=== PATIENT | female | born 1990 | race Caucasian/White ===

== ENCOUNTER 2016-07-13 18:20 | Emergency (ER) | payer OTHER ==
[~2016-07-13 18:20] MED LIST: CELEBREX200 MG PO; METHADONE HCL10 MG PO; VICODIN EQUIVAL1 TAB PO
--- NOTE | 2016-07-13 21:32 | ED CLINICAL REPORT ---
Clinical Report - Physicians/Mid Levels [facility] [address] [place] [address] 07/13/2016 18:20 Patient: SHELDON JARA Time Seen: 21:10 Jul 13 2016. Arrived- By private vehicle. Historian- patient. HISTORY OF PRESENT ILLNESS Chief Complaint: COUGH. 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 The patient has had a cough, nasal congestion, sinus pressure, sinus drainage and chills. She has had a nasal discharge. (over the last 4 days patient started with nasal congestion, now sore throat, with body aches fatigue, chills. Right side pain of the chest,). REVIEW OF SYSTEMS No vomiting or difficulty with urination. All systems otherwise negative, except as recorded above. PAST HISTORY Problems: Sick Contact. Meningitis. Migraine Headache. Headache. Bursitis. Sprain. Myofascial Strain. Chiari malformation. Additional Surgeries: Chiari malformation decompression. Cholecystectomy. . Hysterectomy. Laparoscopy. Tubal Ligation. Medications: Methadone HCl Oral 10 mg , BID. Vicodin Oral 10mg/325mg. Allergies: No Known Drug Allergy. SOCIAL HISTORY Never smoker. No alcohol use. ADDITIONAL NOTES The nursing notes have been reviewed. PHYSICAL EXAM Vital Signs: 07/13/2016 18:51 BP: 128/57. HR: 76. RR: 18. O2 saturation: 98%. Temp: 98.2 F. Appearance: Alert. Eyes: Eyes normal inspection. ENT: Ears normal. Pharynx normal. No tonsillar exudate or peritonsillar mass. Neck: Normal inspection. CVS: Normal heart rate and rhythm. Heart sounds normal. Pulses normal. Respiratory: No respiratory distress. Breath sounds normal. Back: Normal inspection. Skin: Skin warm. Normal skin color. LABS, X-RAYS, AND EKG Chest X-ray: (IMPRESSION: 1. Negative chest. Electronically Final signed by:Caleb Velázquez MD 07/13/2016 10:03:46 PM). Laboratory Tests: Rapid Influenza Screen: (JAI: 07/13/2016 19:00) ( MsgRcvd 07/13/2016 19:38) Final results SPECIMEN DESCRIPTION: NOSE Test Result Flag Units (Reference) RAPID INFLUENZA SCREEN DATE: 07/13/16 INFLUENZA A: NEGATIVE SCREEN FOR INFLUENZA A INFLUENZA B: NEGATIVE SCREEN FOR INFLUENZA B . PROGRESS AND PROCEDURES Course of Care: rapid ER negative influenza cxr neg pt stable, here, pt with sinus tenderness, pain, no fevers, will tx for bronchitis vs early sinusitis, otherwise no meningeal pain, no headache. 07/13/2016 18:51 BP: 128/57. HR: 76. RR: 18. O2 saturation: 98%. Temp: 98.2 F. Patient is stable. Physical exam findings are improved. Symptoms better. Patient/family counseled. Disposition: Discharged. CLINICAL IMPRESSION Acute sinusitis INSTRUCTIONS Drink plenty of fluids. (steam humidified air). Prescription Medications: Zithromax Z-Manny: OTC Medications: Sudafed 60 mg tabs (available over the counter): take 1 tablet orally every 6 hours for 3 days, as needed for congestion. Dispense ten (10). No refill. Substitution is permissible. Follow-up: Follow up with your doctor in three days as needed. (Electronically signed by Macrina Griffith P.A.-C 07/13/2016 22:37)
--- NOTE | 2016-07-13 21:32 | ED CLINICAL REPORT ---
Clinical Report - Physicians/Mid Levels [facility] [address] [place] [address] 07/13/2016 18:20 Patient: SHELDON JARA Time Seen: 21:10 Jul 13 2016. Arrived- By private vehicle. Historian- patient. HISTORY OF PRESENT ILLNESS Chief Complaint: COUGH. 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 The patient has had a cough, nasal congestion, sinus pressure, sinus drainage and chills. She has had a nasal discharge. (over the last 4 days patient started with nasal congestion, now sore throat, with body aches fatigue, chills. Right side pain of the chest,). REVIEW OF SYSTEMS No vomiting or difficulty with urination. All systems otherwise negative, except as recorded above. PAST HISTORY Problems: Sick Contact. Meningitis. Migraine Headache. Headache. Bursitis. Sprain. Myofascial Strain. Chiari malformation. Additional Surgeries: Chiari malformation decompression. Cholecystectomy. . Hysterectomy. Laparoscopy. Tubal Ligation. Medications: Methadone HCl Oral 10 mg , BID. Vicodin Oral 10mg/325mg. Allergies: No Known Drug Allergy. SOCIAL HISTORY Never smoker. No alcohol use. ADDITIONAL NOTES The nursing notes have been reviewed. PHYSICAL EXAM Vital Signs: 07/13/2016 18:51 BP: 128/57. HR: 76. RR: 18. O2 saturation: 98%. Temp: 98.2 F. Appearance: Alert. Eyes: Eyes normal inspection. ENT: Ears normal. Pharynx normal. No tonsillar exudate or peritonsillar mass. Neck: Normal inspection. CVS: Normal heart rate and rhythm. Heart sounds normal. Pulses normal. Respiratory: No respiratory distress. Breath sounds normal. Back: Normal inspection. Skin: Skin warm. Normal skin color. LABS, X-RAYS, AND EKG Chest X-ray: (IMPRESSION: 1. Negative chest. Electronically Final signed by:Caleb Velázquez MD 07/13/2016 10:03:46 PM). Laboratory Tests: Rapid Influenza Screen: (JAI: 07/13/2016 19:00) ( MsgRcvd 07/13/2016 19:38) Final results SPECIMEN DESCRIPTION: NOSE Test Result Flag Units (Reference) RAPID INFLUENZA SCREEN DATE: 07/13/16 INFLUENZA A: NEGATIVE SCREEN FOR INFLUENZA A INFLUENZA B: NEGATIVE SCREEN FOR INFLUENZA B . PROGRESS AND PROCEDURES Course of Care: rapid ER negative influenza cxr neg pt stable, here, pt with sinus tenderness, pain, no fevers, will tx for bronchitis vs early sinusitis, otherwise no meningeal pain, no headache. 07/13/2016 18:51 BP: 128/57. HR: 76. RR: 18. O2 saturation: 98%. Temp: 98.2 F. Patient is stable. Physical exam findings are improved. Symptoms better. Patient/family counseled. Disposition: Discharged. CLINICAL IMPRESSION Acute sinusitis INSTRUCTIONS Drink plenty of fluids. (steam humidified air). Prescription Medications: Zithromax Z-Manny: OTC Medications: Sudafed 60 mg tabs (available over the counter): take 1 tablet orally every 6 hours for 3 days, as needed for congestion. Dispense ten (10). No refill. Substitution is permissible. Follow-up: Follow up with your doctor in three days as needed. (Electronically signed by Macrina Griffith P.A.-C 07/13/2016 22:37)
--- NOTE | 2016-07-13 21:32 | ED ORDER SUMMARY ---
..... Patient: SHELDON JARA OrderSheet [facility] VisitID: [id number] [address] [place] [address] 26y, F Registration Date/Time: 07/13/2016 ORDER SHEET Weight: 99.3 kg (stated) Allergies: No Known Drug Allergy GENERAL ORDERS: Rapid Influenza Screen (Nasal Pharyngeal) (nose) Urgent (19:13 07/13/2016 Rl Mina per protocol) (19:19 NHouse ER Tech1) Chest 2V Urgent (21:03 07/13/2016 Criss P.A.-C) (21:21 MCampbell) MEDICATION ORDERS: IV FLUIDS: ORDER SHEET NOTES: [Electronically signed by Maria Teresa Vernon R.N. (21:51 07/13/2016)] [Electronically signed by Macrina Griffith P.A.-C (22:37 07/13/2016)] [Electronically locked/signed by Maria Teresa Vernon R.N. (21:51 07/13/2016)]
--- NOTE | 2016-07-13 21:32 | ED NURSING NOTES ---
Clinical Report - Nurses Merged With [facility] [address] [place] [address] 07/13/2016 18:20 Patient: SHELDON JARA TRIAGE Triage time 18:51 Jul 13 2016. Acuity: LEVEL 4. Chief Complaint: FEVER and BODY ACHES. Alert. No acute distress. --18:57 Maria Teresa Vernon R.N. 18:51 07/13/16. BP: 128/57. HR: 76. RR: 18. O2 saturation: 98%. Temp: 98.2 F. Pain level now 0/10. --18:57 Maria Teresa Vernon R.N. Weight: 99.3 kg stated. Height/Length: 65 inches Per Patient. BMI: 36.5. --18:49 Maria Teresa Vernon R.N. Medications Methadone HCl Oral 10 mg , BID. Vicodin Oral 10mg/325mg. --18:53 Maria Teresa Vernon R.N. Medication/allergy information source: the patient. --18:57 Maria Teresa Vernon R.N. Allergies No Known Drug Allergy. --18:53 Maria Teresa Vernon R.N. History Arrived by private vehicle. Historian: patient. Primary physician ([facility]). ( 4 days of sweating, sinus congestion, flushed face, fever, chills, no cough.). Onset. (4 days). 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 PAST MEDICAL HX: The patient has had a hysterectomy. SOCIAL HX: Light tobacco smoker (cigarette)- less than 1/2 a pack per day. No alcohol use or drug use. No recent travel. She has had contact with a sick individual. (works at [employer]). No infectious disease exposure. FALL RISK ASSESSMENT: Fall risk assessment completed. No fall risk identified. NUTRITIONAL RISK ASSESSMENT: The nutritional risk assessment revealed no deficiencies. FUNCTIONAL ASSESSMENT: Functional assessment: no impairments noted. LEARNING NEEDS ASSESSMENT: The learning needs assessment revealed no barriers. SKIN INTEGRITY ASSESSMENT: Skin integrity risk assessment completed. No skin integrity risk identified. --18:57 Maria Teresa Vernon R.N. PAST MEDICAL HX: Has not received seasonal influenza immunization. --18:57 Maria Teresa Vernon R.N. PROBLEMS: Meningitis. Migraine Headache. Headache. Bursitis. Sprain. Myofascial Strain. Chiari malformation. --18:55 Maria Teresa Vernon R.N. ADDITIONAL SURGERIES: Chiari malformation decompression. Cholecystectomy. . Hysterectomy. Laparoscopy. Tubal Ligation. --18:55 Maria Teresa Vernon R.N. Interventions ID band on patient. To room. --18:57 Maria Teresa Vernon R.N. PHYSICAL ASSESSMENT Ambulatory to room. GENERAL / NEURO / PSYCH: Oriented X 4. Appears in no acute distress. HEENT: Pupils equal, round and reactive to light. RESPIRATORY: Respirations not labored. CVS: Capillary refill less than 2 seconds. SKIN: Skin is warm and dry. --21:50 Maria Teresa Vernon R.N. NURSING PROGRESS NOTES Patient ready for evaluation- ED physician notified. --18:58 Maria Teresa Vernon R.N. Patient ID band checked: patient confirmed. Flu swab obtained by RN via nasal swab. Labeled in the presence of the patient and sent to lab. --19:14 Maria Teresa Vernon R.N. Informed about reason for wait. Patient waiting for lab results. --20:54 Maria Teresa Vernon R.N. 20:53 07/13/16. BP: 113/58. HR: 70. RR: 20. O2 saturation: 98%. --20:54 Maria Teresa Vernon R.N. ( pt brought to [facility]. to be seen by PA. No open rooms in ER.). --20:54 Maria Teresa Vernon R.N. ( Pt discharged from [facility] room by EDIE Morel. Discussed Zpack dosing.). --21:50 Maria Teresa Vernon R.N. DISPOSITION / DISCHARGE Departure time: 21:51 Jul 13 2016. Condition at departure: unchanged and stable. No learning barriers present. Patient verbalized understanding. Written instructions provided in Bengali. The patient was discharged by the physician optometry assistant. She was discharged home. She left the Emergency Department ambulatory and via private vehicle. Patient driving. --21:51 Maria Teresa Vernon R.N. Locked/Released at 07/13/2016 21:51 by Maria Teresa Vernon R.N.
--- NOTE | 2016-07-13 21:32 | ED ORDER SUMMARY ---
..... Patient: SHELDON JARA OrderSheet [facility] VisitID: [id number] [address] [place] [address] 26y, F Registration Date/Time: 07/13/2016 ORDER SHEET Weight: 99.3 kg (stated) Allergies: No Known Drug Allergy GENERAL ORDERS: Rapid Influenza Screen (Nasal Pharyngeal) (nose) Urgent (19:13 07/13/2016 Rl Mina per protocol) (19:19 NHouse ER Tech1) Chest 2V Urgent (21:03 07/13/2016 Criss P.A.-C) (21:21 MCampbell) MEDICATION ORDERS: IV FLUIDS: ORDER SHEET NOTES: [Electronically signed by Maria Teresa Vernon R.N. (21:51 07/13/2016)] [Electronically signed by Macrina Griffith P.A.-C (22:37 07/13/2016)] [Electronically locked/signed by Maria Teresa Vernon R.N. (21:51 07/13/2016)]
--- NOTE | 2016-07-13 21:32 | ED NURSING NOTES ---
Clinical Report - Nurses [facility] [address] [place] [address] 07/13/2016 18:20 Patient: SHELDON JARA TRIAGE Triage time 18:51 Jul 13 2016. Acuity: LEVEL 4. Chief Complaint: FEVER and BODY ACHES. Alert. No acute distress. --18:57 Maria Teresa Vernon R.N. 18:51 07/13/16. BP: 128/57. HR: 76. RR: 18. O2 saturation: 98%. Temp: 98.2 F. Pain level now 0/10. --18:57 Maria Teresa Vernon R.N. Weight: 99.3 kg stated. Height/Length: 65 inches Per Patient. BMI: 36.5. --18:49 Maria Teresa Vernon R.N. Medications Methadone HCl Oral 10 mg , BID. Vicodin Oral 10mg/325mg. --18:53 Maria Teresa Vernon R.N. Medication/allergy information source: the patient. --18:57 Maria Teresa Vernon R.N. Allergies No Known Drug Allergy. --18:53 Maria Teresa Vernon R.N. History Arrived by private vehicle. Historian: patient. Primary physician ([facility]). ( 4 days of sweating, sinus congestion, flushed face, fever, chills, no cough.). Onset. (4 days). 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 PAST MEDICAL HX: The patient has had a hysterectomy. SOCIAL HX: Light tobacco smoker (cigarette)- less than 1/2 a pack per day. No alcohol use or drug use. No recent travel. She has had contact with a sick individual. (works at [employer]). No infectious disease exposure. FALL RISK ASSESSMENT: Fall risk assessment completed. No fall risk identified. NUTRITIONAL RISK ASSESSMENT: The nutritional risk assessment revealed no deficiencies. FUNCTIONAL ASSESSMENT: Functional assessment: no impairments noted. LEARNING NEEDS ASSESSMENT: The learning needs assessment revealed no barriers. SKIN INTEGRITY ASSESSMENT: Skin integrity risk assessment completed. No skin integrity risk identified. --18:57 Maria Teresa Vernon R.N. PAST MEDICAL HX: Has not received seasonal influenza immunization. --18:57 Maria Teresa Vernon R.N. PROBLEMS: Meningitis. Migraine Headache. Headache. Bursitis. Sprain. Myofascial Strain. Chiari malformation. --18:55 Maria Teresa Vernon R.N. ADDITIONAL SURGERIES: Chiari malformation decompression. Cholecystectomy. . Hysterectomy. Laparoscopy. Tubal Ligation. --18:55 Maria Teresa Vernon R.N. Interventions ID band on patient. To room. --18:57 Maria Teresa Vernon R.N. PHYSICAL ASSESSMENT Ambulatory to room. GENERAL / NEURO / PSYCH: Oriented X 4. Appears in no acute distress. HEENT: Pupils equal, round and reactive to light. RESPIRATORY: Respirations not labored. CVS: Capillary refill less than 2 seconds. SKIN: Skin is warm and dry. --21:50 Maria Teresa Vernon R.N. NURSING PROGRESS NOTES Patient ready for evaluation- ED physician notified. --18:58 Maria Teresa Vernon R.N. Patient ID band checked: patient confirmed. Flu swab obtained by RN via nasal swab. Labeled in the presence of the patient and sent to lab. --19:14 Maria Teresa Vernon R.N. Informed about reason for wait. Patient waiting for lab results. --20:54 Maria Teresa Vernon R.N. 20:53 07/13/16. BP: 113/58. HR: 70. RR: 20. O2 saturation: 98%. --20:54 Maria Teresa Vernon R.N. ( pt brought to [facility]. to be seen by PA. No open rooms in ER.). --20:54 Maria Teresa Vernon R.N. ( Pt discharged from [facility] room by EDIE Morel. Discussed Zpack dosing.). --21:50 Maria Teresa Vernon R.N. DISPOSITION / DISCHARGE Departure time: 21:51 Jul 13 2016. Condition at departure: unchanged and stable. No learning barriers present. Patient verbalized understanding. Written instructions provided in Greek. The patient was discharged by the physician assistant distribution manager. She was discharged home. She left the Emergency Department ambulatory and via private vehicle. Patient driving. --21:51 Maria Teresa Vernon R.N. Locked/Released at 07/13/2016 21:51 by Maria Teresa Vernon R.N.
--- NOTE | 2016-07-13 22:05 | DIAGNOSTIC IMAGING REPORT ---
PROCEDURE: XR CHEST 2 VIEW INDICATION: COUGH TECHNIQUE: PA and lateral views. COMPARISON: None. FINDINGS: Lungs are clear. Heart and mediastinum are normal. Thorax is normal. Surgical clips right upper quadrant suggest prior cholecystectomy. IMPRESSION: 1. Negative chest.
--- NOTE | 2016-07-13 22:37 | ED MED RECONCILIATION SUMMARY ---
Patient: SHELDON JARA Medication Reconciliation Report [facility] VisitID: [id number] [address] [place] [address] 26y, F Registration Date/Time: 07/13/2016 Weight: 99.3 kg Height/Length: 65 in. BMI: 36.5 ALLERGIES: No Known Drug Allergy The patient's Home Medications are listed below: THE FOLLOWING MEDICATIONS NEED TO BE RECONCILED: Methadone HCl Oral 10 mg , BID Vicodin Oral 10mg/325mg The source(s) of the original Home Medication information: patient The following Medications were given to the patient in the Emergency Department: None. The following Medications were prescribed to the patient: Zithromax Z-Manny: -- Macrina Griffith, P.A.Tamika Sudafed 60 mg tabs (available over the counter): take 1 tablet orally every 6 hours for 3 days, as needed for congestion. Dispense ten (10). No refill. Substitution is permissible. -- Macrina Griffith P.A.Tamika
--- NOTE | 2016-07-13 22:37 | ED DISCHARGE INSTRUCTIONS ---
Patient: SHELDON JARA General Instructions [facility] VisitID: [id number] [place] [address] 26y, F Registration Date/Time: 07/13/2016 Acute sinusitis INSTRUCTIONS Drink plenty of fluids. (steam humidified air). Prescription Medications: Zithromax Z-Manny: OTC Medications: Sudafed 60 mg tabs (available over the counter): take 1 tablet orally every 6 hours for 3 days, as needed for congestion. Dispense ten (10). No refill. Substitution is permissible. Follow-up: Follow up with your doctor in three days as needed. ADDITIONAL INFORMATION Sinusitis [Abx Tx] The sinuses are air-filled spaces within the bones of the face. They connect to the inside of the nose. Sinusitis is an inflammation of the tissue lining the sinus cavity. Sinus inflammation can occur during a cold or hay-fever (allergies to pollens and other particles in the air) and cause symptoms of sinus congestion and fullness. A sinus infection causes fever, headache and facial pain. There is usually green or yellow drainage from the nose or into the back of the throat (post-nasal drip). Antibiotics are prescribed to treat this condition. Home Care: Drink plenty of water, hot tea, and other liquids to stay well hydrated. This thins the mucus and promotes sinus drainage. Apply heat to the painful areas of the face. Use a towel soaked in hot water. Or, contractor general building the shower and direct the hot spray onto your face. This is a good way to inhale warm water vapor and get heat on your face at the same time. (Cover your mouth and nose with your hands so you can still breathe as you do this.) Use a vaporizer with products such as Vicks VapoRub (contains menthol) at night. Suck on peppermint, menthol or eucalyptus hard candies during the day. An expectorant containing guaifenesin (such as Robitussin), helps to thin the mucus and promote drainage from the sinuses. [id number] decongestants may be used unless a similar medicine was prescribed. Nasal sprays work the fastest. Use one that contains phenylephrine (Mckay-synephrine, Sinex and others) or oxymetazoline (Afrin). First blow the nose gently to remove mucus, then apply the drops. Do not use these medicines more often than directed on the label or for more than three days or symptoms may worsen. You may also use tablets containing pseudoephedrine (Sudafed). Many sinus remedies combine ingredients, which may increase side effects. Read the labels or ask the pharmacist for help. NOTE: Persons with high blood pressure should not use decongestants. They can raise blood pressure. Antihistamines are useful if allergies are a cause of your sinusitis. The mildest one is chlorpheniramine (available without a prescription). The dose for adults is 8-12mg three times a day. [NOTE: Do not use chlorpheniramine if you have glaucoma or if you are a man with trouble urinating due to an enlarged prostate.] Claritin (loratidine) is an antihistamine that causes less drowsiness and is a good alternative for daytime use. Do not use nasal rinses or irrigation during an acute sinus infection, unless advised by your doctor. Rinsing may spread the infection to other sinuses. You may use acetaminophen (Tylenol) or ibuprofen (Motrin, Advil) to control pain, unless another pain medicine was prescribed. [ NOTE: If you have chronic liver or kidney disease or ever had a stomach ulcer, talk with your doctor before using these medicines.] (Aspirin should never be used in anyone under 18 years of age who is ill with a fever. It may cause severe liver damage.) Finish the full course, even if you are feeling better after a few days. Follow Up with your doctor or this facility in one week or as instructed by our staff if not improving. Get Prompt Medical Attention if any of the following occur: Facial pain or headache becomes more severe Stiff neck Unusual drowsiness or confusion, or not acting like your normal self Swelling of the forehead or eyelids Vision problems including blurred or double vision Fever of 100.4F (38C) or higher, or as directed by your healthcare provider Seizure Pseudoephedrine Hydrochloride Oral tablet [Abuse Deterrent] What is this medicine? PSEUDOEPHEDRINE (shane lewis e FED rin) is a decongestant. It is used to treat congestion of the nose or sinuses. How should I use this medicine? Take this medicine by mouth with a glass of water. Follow the directions on the package or prescription label. Take your medicine at regular intervals. Do not take your medicine more often than directed. Talk to your on site services specialist regarding the use of this medicine in children. While this drug may be prescribed for children as young as 6 years of age for selected conditions, precautions do apply. Patients over 65 years old may have a stronger reaction and need a smaller dose. What side effects may I notice from receiving this medicine? Side effects that you should report to your doctor or health personal care home administrator as soon as possible: allergic reactions like skin rash, itching or hives, swelling of the face, lips, or tongue bloody diarrhea with stomach pain breathing problems chest pain confused, agitated, nervous fast, irregular heartbeat feeling faint or lightheaded, falls hallucinations high blood pressure pain, tingling, numbness in the hands or feet trouble passing urine or change in the amount of urine trouble sleeping Side effects that usually do not require medical attention (report to your doctor or health personal care home administrator if they continue or are bothersome): headache loss of appetite nausea, stomach upset What may interact with this medicine? Do not take this medicine with any of the following medications: bromocriptine ergot alkaloids like dihydroergotamine, ergonovine, ergotamine, methylergonovine MAOIs like Carbex, Eldepryl, Marplan, Nardil, and Parnate stimulant medicines for attention disorders, weight loss, or to stay awake This medicine may also interact with the following medications: alcohol atropine bretylium caffeine digoxin linezolid mecamylamine medicines for blood pressure medicines for depression, anxiety, or psychotic disturbances like fluoxetine, sertraline medicines for enlarged prostate medicines for sleep other medicines for cold, cough, or allergy procarbazine reserpine some heart medicines like metoprolol Angela's Wort What if I miss a dose? If you miss a dose, take it as soon as you can. If it is almost time for your next dose, take only that dose. Do not take double or extra doses. Where should I keep my medicine? Keep out of the reach of children. Store at room temperature between 15 and 25 degrees C (59 and 77 degrees F). Protect from heat and moisture. Throw away any unused medicine after the expiration date. What should I tell my health care provider before I take this medicine? They need to know if you have any of the following conditions: diabetes glaucoma heart disease high blood pressure kidney disease prostate trouble taken an MAOI like Carbex, Eldepryl, Marplan, Nardil, or Parnate in last 14 days thyroid disease trouble passing urine an unusual or allergic reaction to pseudoephedrine, other medicines, foods, dyes, or preservatives or trying to get breast-feeding What should I watch for while using this medicine? Tell your doctor or healthcare professional if your symptoms do not start to get better or if they get worse. See your doctor if you are not better in 7 days or if you have a fever. You have been given the following additional information: Sinusitis, Abx Tx Pseudoephedrine Hydrochloride Oral tablet [Abuse Deterrent] (Electronically signed by Macrina Griffith P.A.-C 07/13/2016 22:37)
--- NOTE | 2016-07-13 22:37 | ED MED RECONCILIATION SUMMARY ---
Patient: SHELDON JARA Medication Reconciliation Report [facility] VisitID: [id number] [address] [place] [address] 26y, F Registration Date/Time: 07/13/2016 Weight: 99.3 kg Height/Length: 65 in. BMI: 36.5 ALLERGIES: No Known Drug Allergy The patient's Home Medications are listed below: THE FOLLOWING MEDICATIONS NEED TO BE RECONCILED: Methadone HCl Oral 10 mg , BID Vicodin Oral 10mg/325mg The source(s) of the original Home Medication information: patient The following Medications were given to the patient in the Emergency Department: None. The following Medications were prescribed to the patient: Zithromax Z-Manny: -- Macrina Griffith, P.A.Tamika Sudafed 60 mg tabs (available over the counter): take 1 tablet orally every 6 hours for 3 days, as needed for congestion. Dispense ten (10). No refill. Substitution is permissible. -- Macrina Griffith P.A.Tamika
--- NOTE | 2016-07-13 22:37 | ED MAR SUMMARY ---
..... Medication Administration Record [facility] [address] [place], [place] [id number] Patient: SHELDON JARA Visit ID: [id number] 26y, F Weight: 99.3 kg Height/Length: 65 in BMI: 36.5 ALLERGIES: No Known Drug Allergy
--- NOTE | 2016-07-13 22:37 | ED MAR SUMMARY ---
..... Medication Administration Record [facility] [address] [place], [place] [id number] Patient: SHELDON JARA Visit ID: [id number] 26y, F Weight: 99.3 kg Height/Length: 65 in BMI: 36.5 ALLERGIES: No Known Drug Allergy
== END 2016-07-13 21:50 | disposition home or self-care (01) ==
LOC: ED SRH 18:20
DX: J01.90 Acute sinusitis, unspecified (principal); G43.909 Migraine, unspecified, not intractable, without status migrainosus; F17.210 Nicotine dependence, cigarettes, uncomplicated
CPT/HCPCS: 91400

== ENCOUNTER 2017-01-19 14:44 | Emergency (ER) | payer OTHER ==
--- NOTE | 2017-01-19 15:19 | ED NURSING NOTES ---
Clinical Report - Nurses Merged With [facility] [address] [place] [address] 01/19/2017 14:44 Patient: SHELDON JARA TRIAGE Triage time 15:Jan 19 2017. Acuity: LEVEL 3. Chief Complaint: (Painful (R) side of the face with possible tooth infection.). Alert. JIMMIE COMA SCORE: Jimmie Coma Scale: 15- eyes open spontaneously (4); best verbal response- oriented x 4 (5); best motor response- obeys commands (6). --15:22 Koby Davies R.N. 15:06 01/19/17. BP: 120/63. HR: 96. RR: 16. O2 saturation: 99% on room air. Temp: 98.7 F (oral). Pain level now: 01/11. --15:22 Koby Davies R.N. Weight: 90.7 kg stated. Height/Length: 65 inches Per Patient. BMI: 33.3. --15:17 Koby Davies R.N. Medications Methadone HCl Oral 10 mg, 2 x daily. --15:14 Koby Davies R.N. Narco 10 mg, 4x a day. --15:15 Koby Davies R.N. Allergies No Known Drug Allergy. --15:16 Koby Davies R.N. History Arrived by private vehicle. Historian: patient. Accompanied by grandmother. Primary physician ([facility]). ( (R) Side of head is numb and she is having foul-smelling drainage in her mouth. She states that she had a previous tooth problem on the (R) upper molar that had a cavity, which her dentist was unable to address because she missed an appointment.). Onset. (about 4 days ago). Treatment SOCIAL SERVICES COUNSELOR: None. PAST MEDICAL HX: The patient has had a hysterectomy. Denies current . SOCIAL HX: Light tobacco smoker (cigarette)- less than 1/2 a pack per day. No alcohol use or drug use. No infectious disease exposure. ABUSE ASSESSMENT: No report of abuse. FALL RISK ASSESSMENT: Fall risk assessment completed. No fall risk identified. NUTRITIONAL RISK ASSESSMENT: The nutritional risk assessment revealed no deficiencies. FUNCTIONAL ASSESSMENT: Functional assessment: no impairments noted. LEARNING NEEDS ASSESSMENT: The learning needs assessment revealed no barriers. SKIN INTEGRITY ASSESSMENT: Skin integrity risk assessment completed. No skin integrity risk identified. --15:22 Koby Davies R.N. PROBLEMS: Sinusitis. Meningitis. Migraine Headache. Bursitis. Sprain. Myofascial Strain. Chiari malformation. --15:16 Koby Davies R.N. ADDITIONAL SURGERIES: Chiari malformation decompression. Cholecystectomy. . Hysterectomy. Laparoscopy. Tubal Ligation. --15:16 Koby Davies R.N. Interventions ID band on patient. To treatment room. --15:22 Koby Davies R.N. PHYSICAL ASSESSMENT Ambulatory to room. GENERAL / NEURO / PSYCH: Alert. Oriented X 4. HEENT: No facial asymmetry noted. RESPIRATORY: Respirations not labored. CVS: Normal sinus rhythm noted. GI / : Abdomen soft. SKIN: Skin intact. Skin is warm and dry. Normal skin turgor. --15:22 Koby Davies R.N. NURSING PROGRESS NOTES Reassurance given to the patient. Patient identifiers checked. Call light placed in reach. Side rails up x 1. Bed placed in lowest position. Brakes of bed on. Patient ready for evaluation- chart flagged and PA notified. --15:22 Koby Davies R.N. 15:21 01/19/2017 Clindamycin PO Capsules 300 mg given. Allergies verified and confirmed 5 rights. --15:31 Koby Davies R.N. 15:22 01/19/2017 Motrin PO Tablets 800 mg given. Allergies verified and confirmed 5 rights. --15:32 Koby Davies R.N. DISPOSITION / DISCHARGE Departure time: 1530. Condition at departure: unchanged. No learning barriers present. Discharge instructions provided and reviewed with the patient. Reviewed medication(s) (prescription given to pt). Reviewed referral to a dentist for followup. Patient and family verbalized understanding. Written instructions provided in [place]. The patient was discharged by the physician obstetric assistant. She was discharged home and accompanied by family. She left the Emergency Department ambulatory and via private vehicle. Family member driving. --15:35 Koby Davies R.N. Locked/Released at 01/19/2017 15:37 by Koby Davies R.N.
--- NOTE | 2017-01-19 15:19 | ED NURSING NOTES ---
Clinical Report - Nurses [facility] [address] [place] [address] 01/19/2017 14:44 Patient: SHELDON JARA TRIAGE Triage time 15:Jan 19 2017. Acuity: LEVEL 3. Chief Complaint: (Painful (R) side of the face with possible tooth infection.). Alert. JIMMIE COMA SCORE: Jimmie Coma Scale: 15- eyes open spontaneously (4); best verbal response- oriented x 4 (5); best motor response- obeys commands (6). --15:22 Koby Davies R.N. 15:06 01/19/17. BP: 120/63. HR: 96. RR: 16. O2 saturation: 99% on room air. Temp: 98.7 F (oral). Pain level now: 01/11. --15:22 Koby Davies R.N. Weight: 90.7 kg stated. Height/Length: 65 inches Per Patient. BMI: 33.3. --15:17 Koby Davies R.N. Medications Methadone HCl Oral 10 mg, 2 x daily. --15:14 Koby Davies R.N. Narco 10 mg, 4x a day. --15:15 Koby Davies R.N. Allergies No Known Drug Allergy. --15:16 Koby Davies R.N. History Arrived by private vehicle. Historian: patient. Accompanied by grandmother. Primary physician ([facility]). ( (R) Side of head is numb and she is having foul-smelling drainage in her mouth. She states that she had a previous tooth problem on the (R) upper molar that had a cavity, which her dentist was unable to address because she missed an appointment.). Onset. (about 4 days ago). Treatment ASSISTANT PROFESSOR OF SOCIOLOGY: None. PAST MEDICAL HX: The patient has had a hysterectomy. Denies current . SOCIAL HX: Light tobacco smoker (cigarette)- less than 1/2 a pack per day. No alcohol use or drug use. No infectious disease exposure. ABUSE ASSESSMENT: No report of abuse. FALL RISK ASSESSMENT: Fall risk assessment completed. No fall risk identified. NUTRITIONAL RISK ASSESSMENT: The nutritional risk assessment revealed no deficiencies. FUNCTIONAL ASSESSMENT: Functional assessment: no impairments noted. LEARNING NEEDS ASSESSMENT: The learning needs assessment revealed no barriers. SKIN INTEGRITY ASSESSMENT: Skin integrity risk assessment completed. No skin integrity risk identified. --15:22 Koby Davies R.N. PROBLEMS: Sinusitis. Meningitis. Migraine Headache. Bursitis. Sprain. Myofascial Strain. Chiari malformation. --15:16 Koby Davies R.N. ADDITIONAL SURGERIES: Chiari malformation decompression. Cholecystectomy. . Hysterectomy. Laparoscopy. Tubal Ligation. --15:16 Koby Davies R.N. Interventions ID band on patient. To treatment room. --15:22 Koby Davies R.N. PHYSICAL ASSESSMENT Ambulatory to room. GENERAL / NEURO / PSYCH: Alert. Oriented X 4. HEENT: No facial asymmetry noted. RESPIRATORY: Respirations not labored. CVS: Normal sinus rhythm noted. GI / : Abdomen soft. SKIN: Skin intact. Skin is warm and dry. Normal skin turgor. --15:22 Koby Davies R.N. NURSING PROGRESS NOTES Reassurance given to the patient. Patient identifiers checked. Call light placed in reach. Side rails up x 1. Bed placed in lowest position. Brakes of bed on. Patient ready for evaluation- chart flagged and PA notified. --15:22 Koby Davies R.N. 15:21 01/19/2017 Clindamycin PO Capsules 300 mg given. Allergies verified and confirmed 5 rights. --15:31 Koby Davies R.N. 15:22 01/19/2017 Motrin PO Tablets 800 mg given. Allergies verified and confirmed 5 rights. --15:32 Koby Davies R.N. DISPOSITION / DISCHARGE Departure time: 1530. Condition at departure: unchanged. No learning barriers present. Discharge instructions provided and reviewed with the patient. Reviewed medication(s) (prescription given to pt). Reviewed referral to a dentist for followup. Patient and family verbalized understanding. Written instructions provided in [place]i. The patient was discharged by the physician physical laboratory assistant. She was discharged home and accompanied by family. She left the Emergency Department ambulatory and via private vehicle. Family member driving. --15:35 Koby Davies R.N. Locked/Released at 01/19/2017 15:37 by Koby Davies R.N.
--- NOTE | 2017-01-19 15:19 | ED CLINICAL REPORT ---
Clinical Report - Physicians/Mid Levels [facility] [address] [place] [address] 01/19/2017 14:44 [id number] Time Seen: 15:30 Jan 19 2017. Arrived- By private vehicle. HISTORY OF PRESENT ILLNESS Chief Complaint: DENTAL PAIN. This started just prior to arrival and is still present. Pain described as mild. (Patient presents with right dental pain worsening since Wednesday over the last 4 days, recently on antibiotics, amoxicillin, has completed the dosage of such. Denies any difficulty lln Denies cough. Denies fevers or chills. Patient has a future dental appointment.). REVIEW OF SYSTEMS No fever, cough, headache or skin rash. All systems otherwise negative, except as recorded above. PAST HISTORY Problems: Sinusitis. Sick Contact. Meningitis. Migraine Headache. Headache. Bursitis. Sprain. Myofascial Strain. Chiari malformation. Additional Surgeries: Chiari malformation decompression. Cholecystectomy. . Hysterectomy. Laparoscopy. Tubal Ligation. Medications: Narco 10 mg, 4x a day. Methadone HCl Oral 10 mg, 2 x daily. Allergies: No Known Drug Allergy. SOCIAL HISTORY Smoker- current status unknown. No alcohol use or drug use. ADDITIONAL NOTES The nursing notes have been reviewed. PHYSICAL EXAM Vital Signs: 01/19/2017 15:06 BP: 120/63. HR: 96. RR: 16. O2 saturation: 99%. Temp: 98.7 F. Pain level now: 7/10. Appearance: Alert. Head: Normal external inspection. No maxillary swelling. Eyes: Conjunctivae and eyelids normal. ENT: Ears normal. Nose normal. Lips normal. Uvula midline. (they K of most teeth, was premolar signs of decay with infection of the gumline. No palpable mass or abscess for drainage. No signs of ear infection. No signs of external skinerythema. Mild facial swelling. No trismus. No lymphadenopathy.). Neck: Trachea midline. No thyromegaly. Respiratory: No respiratory distress. Breath sounds normal. Skin: Normal skin color. No rash. PROGRESS AND PROCEDURES Course of Care: There are no signs of Kyle's angina. Patient with uvula midline. No signs of otitis externa or media. Patient is very stable. no palpable mass or drainage. Patient has follow up with dentist. Patient will be started on antibiotics. Patient is stable. Physical exam findings are improved. Symptoms better. Patient/family counseled. Disposition: Discharged. Condition: good. CLINICAL IMPRESSION Dental abscess. INSTRUCTIONS Drink plenty of fluids. Prescription Medications: Cleocin 300 mg: take 1 capsule orally every 8 hours for 10 days. No refill. Substitution is permissible. Motrin 800 mg tablets: take 1 tablet orally for 5 days, as needed for pain or swelling. Dispense fifteen (15). No refill. Substitution is permissible. Follow-up: Follow up with a dentist. (Electronically signed by Macrina Griffith P.A.-C 01/19/2017 15:39)
--- NOTE | 2017-01-19 15:19 | ED ORDER SUMMARY ---
..... Patient: SHELDON JARA OrderSheet [facility] VisitID: [id number] [place] [address] 26y, F Registration Date/Time: 01/19/2017 ORDER SHEET Weight: 90.7 kg (stated) Allergies: No Known Drug Allergy GENERAL ORDERS: MEDICATION ORDERS: Motrin PO 800 mg (NOW) (15:18 01/19/2017 EKoroleva P.A.-C) (15:32 Jean R.N.) Hydrocodone-APAP PO 5/325 mg (NOW, HIGH ALERT MEDICATION) (15:18 01/19/2017 EKoroleva P.A.-C) (Cancelled: Other15:23 Cjlechas P.A.-C) Clindamycin PO 300 mg (NOW) (15:18 01/19/2017 EKoroleva P.A.-C) (15:31 Jean R.N.) IV FLUIDS: ORDER SHEET NOTES: [Electronically signed by Koby Davies R.N. (15:37 01/19/2017)] [Electronically signed by Macrina Griffith P.A.-C (15:39 01/19/2017)] [Electronically locked/signed by Koby Davies R.N. (15:37 01/19/2017)]
--- NOTE | 2017-01-19 15:19 | ED ORDER SUMMARY ---
..... Patient: SHELDON JARA OrderSheet [facility] VisitID: [id number] [place] [address] 26y, F Registration Date/Time: 01/19/2017 ORDER SHEET Weight: 90.7 kg (stated) Allergies: No Known Drug Allergy GENERAL ORDERS: MEDICATION ORDERS: Motrin PO 800 mg (NOW) (15:18 01/19/2017 EKoroleva P.A.-C) (15:32 Jean R.N.) Hydrocodone-APAP PO 5/325 mg (NOW, HIGH ALERT MEDICATION) (15:18 01/19/2017 EKoroleva P.A.-C) (Cancelled: Other15:23 Cjlechas P.A.-C) Clindamycin PO 300 mg (NOW) (15:18 01/19/2017 EKoroleva P.A.-C) (15:31 Jean R.N.) IV FLUIDS: ORDER SHEET NOTES: [Electronically signed by Koby Davies R.N. (15:37 01/19/2017)] [Electronically signed by Macrina Griffith P.A.-C (15:39 01/19/2017)] [Electronically locked/signed by Koby Davies R.N. (15:37 01/19/2017)]
--- NOTE | 2017-01-19 15:19 | ED CLINICAL REPORT ---
Clinical Report - Physicians/Mid Levels [facility] [address] [place] [address] 01/19/2017 14:44 [id number] Time Seen: 15:30 Jan 19 2017. Arrived- By private vehicle. HISTORY OF PRESENT ILLNESS Chief Complaint: DENTAL PAIN. This started just prior to arrival and is still present. Pain described as mild. (Patient presents with right dental pain worsening since Wednesday over the last 4 days, recently on antibiotics, amoxicillin, has completed the dosage of such. Denies any difficulty lln Denies cough. Denies fevers or chills. Patient has a future dental appointment.). REVIEW OF SYSTEMS No fever, cough, headache or skin rash. All systems otherwise negative, except as recorded above. PAST HISTORY Problems: Sinusitis. Sick Contact. Meningitis. Migraine Headache. Headache. Bursitis. Sprain. Myofascial Strain. Chiari malformation. Additional Surgeries: Chiari malformation decompression. Cholecystectomy. . Hysterectomy. Laparoscopy. Tubal Ligation. Medications: Narco 10 mg, 4x a day. Methadone HCl Oral 10 mg, 2 x daily. Allergies: No Known Drug Allergy. SOCIAL HISTORY Smoker- current status unknown. No alcohol use or drug use. ADDITIONAL NOTES The nursing notes have been reviewed. PHYSICAL EXAM Vital Signs: 01/19/2017 15:06 BP: 120/63. HR: 96. RR: 16. O2 saturation: 99%. Temp: 98.7 F. Pain level now: 7/10. Appearance: Alert. Head: Normal external inspection. No maxillary swelling. Eyes: Conjunctivae and eyelids normal. ENT: Ears normal. Nose normal. Lips normal. Uvula midline. (they K of most teeth, was premolar signs of decay with infection of the gumline. No palpable mass or abscess for drainage. No signs of ear infection. No signs of external skinerythema. Mild facial swelling. No trismus. No lymphadenopathy.). Neck: Trachea midline. No thyromegaly. Respiratory: No respiratory distress. Breath sounds normal. Skin: Normal skin color. No rash. PROGRESS AND PROCEDURES Course of Care: There are no signs of Kyle's angina. Patient with uvula midline. No signs of otitis externa or media. Patient is very stable. no palpable mass or drainage. Patient has follow up with dentist. Patient will be started on antibiotics. Patient is stable. Physical exam findings are improved. Symptoms better. Patient/family counseled. Disposition: Discharged. Condition: good. CLINICAL IMPRESSION Dental abscess. INSTRUCTIONS Drink plenty of fluids. Prescription Medications: Cleocin 300 mg: take 1 capsule orally every 8 hours for 10 days. No refill. Substitution is permissible. Motrin 800 mg tablets: take 1 tablet orally for 5 days, as needed for pain or swelling. Dispense fifteen (15). No refill. Substitution is permissible. Follow-up: Follow up with a dentist. (Electronically signed by Macrina Griffith P.A.-C 01/19/2017 15:39)
--- NOTE | 2017-01-19 15:39 | ED DISCHARGE INSTRUCTIONS ---
Patient: SHELDON JARA General Instructions [facility] VisitID: [id number] [place] [address] 26y, F Registration Date/Time: 01/19/2017 Dental abscess. INSTRUCTIONS Drink plenty of fluids. Prescription Medications: Cleocin 300 mg: take 1 capsule orally every 8 hours for 10 days. No refill. Substitution is permissible. Motrin 800 mg tablets: take 1 tablet orally for 5 days, as needed for pain or swelling. Dispense fifteen (15). No refill. Substitution is permissible. Follow-up: Follow up with a dentist. ADDITIONAL INFORMATION Dental Abscess A dental abscess is an infection of the tooth socket. It often starts with a crack or cavity in the tooth. A pocket of pus forms between the tooth and the bone. The infection causes pain and swelling of the gum, cheek or jaw. The pain is often made worse by drinking hot or cold fluids, or biting on hard foods. Pain may be felt in the facial sinus or in the ear. A severe infection can interfere with swallowing and breathing. In the emergency department or clinic, you will be started on an antibiotic. However, final treatment requires drainage of the pus. This can be done by removing the tooth or performing a root canal. A root canal is done by an oral surgeon and involves drilling an opening in the tooth to drain the pus. After the infection has healed, a crown is placed over the tooth. Home care The following guidelines will help you care for your abscess at home: Avoid hot and cold foods and liquids since your tooth may be sensitive to temperature changes. If your tooth is chipped or cracked, or if there is a large open cavity, applyoil of cloves(available scav-emu-vldppdr in drug stores) directly to the tooth to reduce pain. Some pharmacies carry an dxcu-ydp-zpmajhu "toothache kit". This contains oil of cloves and a paste, which can be applied over the exposed tooth to decrease sensitivity. Apply an ice pack (ice cubes in a plastic bag, wrapped in a towel) over the injured area for 20 minutes every 12 hours the first day for pain relief. Continue this 34 times a day until the pain and swelling goes away. You may use acetaminophen or ibuprofen to control pain, unless another medicine was prescribed. If you have chronic liver or kidney disease or ever had a stomach ulcer or GI bleeding, talk with your doctor before using these medicines. An antibiotic will be prescribed. Take it as directed until completed, even if you are feeling better sooner. Follow-up care Follow up as directed with a dentist or oral surgeon. Even though your pain may improve with the treatment given today, only a dentist or oral surgeon can provide full treatment for this problem. When to seek medical care Get prompt medical attention or contact your doctor if any of the following occur: Your face or eyelid becomes swollen or red Pain worsens or spreads to the neck Fever over 100.4F (38.0C) Unusual drowsiness; headache or stiff neck; weakness, or fainting Pus drains from the gum or tooth Difficulty talking, swallowing or breathing Unable to open your mouth wide Dental Pain A crack or cavity in the tooth, which exposes the sensitive inner area of the tooth can cause tooth pain. An infection in the gum or the root of the tooth can cause pain and swelling. The pain is often made worse by drinking hot or cold fluids, or biting on hard foods. Pain may spread from the tooth to the ear or jaw on the same side. Home Care: Avoid hot and cold foods and liquids since your tooth may be sensitive to temperature changes. If your tooth is chipped or cracked, or if there is a large open cavity, apply OIL OF CLOVES (available nidt-tgt-drsgrpw in drug stores) directly to the tooth to reduce pain. Some pharmacies carry an knoq-rjj-jgpcdvz "toothache kit." This contains a paste, which can be applied over the exposed tooth to decrease sensitivity. A cold pack on your jaw over the sore area may help reduce pain. You may use acetaminophen (Tylenol) or ibuprofen (Motrin, Advil) to control pain, unless another medicine was prescribed. [ NOTE: If you have chronic liver or kidney disease or ever had a stomach ulcer or GI bleeding, talk with your doctor before using these medicines.] If you have signs of an infection, an antibiotic will be given. Take it as directed. Follow-Up as directed with a dentist. Your pain may go away with the treatment given. However, only a dentist can fully evaluate and treat the cause and prevent the pain from coming back again. TOOTHACHE IS A SIGN OF DISEASE IN YOUR TOOTH AND SHOULD BE EXAMINED AND TREATED BY A DENTIST. Get Prompt Medical Attention if any of the following occur: Your face becomes swollen or red Pain worsens or spreads to the neck Fever over 100.4 F (38.0 C) Unusual drowsiness; headache or stiff neck; weakness or fainting Pus drains from the tooth Difficulty swallowing or breathing Clindamycin Hydrochloride Oral capsule What is this medicine? CLINDAMYCIN (DESIREIN jessenia THOMAS sin) is a lincosamide antibiotic. It is used to treat certain kinds of bacterial infections. It will not work for colds, flu, or other viral infections. How should I use this medicine? Take this medicine by mouth with a full glass of water. Follow the directions on the prescription label. You can take this medicine with food or on an empty stomach. If the medicine upsets your stomach, take it with food. Take your medicine at regular intervals. Do not take your medicine more often than directed. Take all of your medicine as directed even if you think your are better. Do not skip doses or stop your medicine early. Talk to your account executive trainee regarding the use of this medicine in children. Special care may be needed. What side effects may I notice from receiving this medicine? Side effects that you should report to your doctor or health acute care certified nursing assistant as soon as possible: allergic reactions like skin rash, itching or hives, swelling of the face, lips, or tongue dark urine pain on swallowing redness, blistering, peeling or loosening of the skin, including inside the mouth unusual bleeding or bruising unusually weak or tired yellowing of eyes or skin Side effects that usually do not require medical attention (report to your doctor or health acute care certified nursing assistant if they continue or are bothersome): diarrhea itching in the rectal or genital area joint pain nausea, vomiting stomach pain What may interact with this medicine? chloramphenicol erythromycin kaolin products What if I miss a dose? If you miss a dose, take it as soon as you can. If it is almost time for your next dose, take only that dose. Do not take double or extra doses. Where should I keep my medicine? Keep out of the reach of children. Store at room temperature between 20 and 25 degrees C (68 and 77 degrees F). Throw away any unused medicine after the expiration date. What should I tell my health care provider before I take this medicine? They need to know if you have any of these conditions: kidney disease liver disease stomach problems like colitis an unusual or allergic reaction to clindamycin, lincomycin, or other medicines, foods, dyes like tartrazine or preservatives or trying to get breast-feeding What should I watch for while using this medicine? Tell your doctor or healthcare professional if your symptoms do not start to get better or if they get worse. Do not treat diarrhea with over the counter products. Contact your doctor if you have diarrhea that lasts more than 2 days or if it is severe and watery. You have been given the following additional information: Tooth Abscess Dental Pain Clindamycin Hydrochloride Oral capsule (Electronically signed by Macrina Griffith P.A.-C 01/19/2017 15:39)
--- NOTE | 2017-01-19 15:39 | ED MAR SUMMARY ---
..... Medication Administration Record [facility] [address] [place] [address] Patient: SHELDON JARA Visit ID: [id number] 26y, F Weight: 90.7 kg Height/Length: 65 in BMI: 33.3 ALLERGIES: No Known Drug Allergy Given 15:01/19/2017 Koby Davies RChantaleN. Medication Administered: CLINDAMYCIN [PO], Dose: 300 mg Capsules PO. Medication Ordered: Clindamycin PO 300 mg (NOW). Given 15:01/19/2017 Koby Davies, R.N. Medication Administered: MOTRIN [PO], Dose: 800 mg Tablets PO. Medication Ordered: Motrin PO 800 mg (NOW).
--- NOTE | 2017-01-19 15:39 | ED MAR SUMMARY ---
..... Medication Administration Record [facility] [address] [place] [address] Patient: SHELDON JARA Visit ID: [id number] 26y, F Weight: 90.7 kg Height/Length: 65 in BMI: 33.3 ALLERGIES: No Known Drug Allergy Given 15:01/19/2017 Koby Davies RChantaleN. Medication Administered: CLINDAMYCIN [PO], Dose: 300 mg Capsules PO. Medication Ordered: Clindamycin PO 300 mg (NOW). Given 15:01/19/2017 Koby Davies, R.N. Medication Administered: MOTRIN [PO], Dose: 800 mg Tablets PO. Medication Ordered: Motrin PO 800 mg (NOW).
--- NOTE | 2017-01-19 15:39 | ED MED RECONCILIATION SUMMARY ---
Patient: SHELDON JARA Medication Reconciliation Report [facility] VisitID: [id number] [place] [address] 26y, F Registration Date/Time: 01/19/2017 Weight: 90.7 kg Height/Length: 65 in. BMI: 33.3 ALLERGIES: No Known Drug Allergy The patient's Home Medications are listed below: THE FOLLOWING MEDICATIONS NEED TO BE RECONCILED: Methadone HCl Oral 10 mg, 2 x daily Narco 10 mg, 4x a day The source(s) of the original Home Medication information: Not obtained. The following Medications were given to the patient in the Emergency Department: Clindamycin [PO] PO 300 mg, administered: 01/19/2017 3:21:00 PM Motrin [PO] PO 800 mg, administered: 01/19/2017 3:22:00 PM The following Medications were prescribed to the patient: Cleocin 300 mg: take 1 capsule orally every 8 hours for 10 days. No refill. Substitution is permissible. -- Macrina Griffith PDemario Motrin 800 mg tablets: take 1 tablet orally for 5 days, as needed for pain or swelling. Dispense fifteen (15). No refill. Substitution is permissible. -- Macrina Griffith P.AEran
--- NOTE | 2017-01-19 15:39 | ED MED RECONCILIATION SUMMARY ---
Patient: SHELDON JARA Medication Reconciliation Report [facility] VisitID: [id number] [place] [address] 26y, F Registration Date/Time: 01/19/2017 Weight: 90.7 kg Height/Length: 65 in. BMI: 33.3 ALLERGIES: No Known Drug Allergy The patient's Home Medications are listed below: THE FOLLOWING MEDICATIONS NEED TO BE RECONCILED: Methadone HCl Oral 10 mg, 2 x daily Narco 10 mg, 4x a day The source(s) of the original Home Medication information: Not obtained. The following Medications were given to the patient in the Emergency Department: Clindamycin [PO] PO 300 mg, administered: 01/19/2017 3:21:00 PM Motrin [PO] PO 800 mg, administered: 01/19/2017 3:22:00 PM The following Medications were prescribed to the patient: Cleocin 300 mg: take 1 capsule orally every 8 hours for 10 days. No refill. Substitution is permissible. -- Macrina Griffith PDemario Motrin 800 mg tablets: take 1 tablet orally for 5 days, as needed for pain or swelling. Dispense fifteen (15). No refill. Substitution is permissible. -- Macrina Griffith P.AEran
--- NOTE | 2017-01-19 15:39 | ED DISCHARGE INSTRUCTIONS ---
Patient: SHELDON JARA General Instructions [facility] VisitID: [id number] [place] [address] 26y, F Registration Date/Time: 01/19/2017 Dental abscess. INSTRUCTIONS Drink plenty of fluids. Prescription Medications: Cleocin 300 mg: take 1 capsule orally every 8 hours for 10 days. No refill. Substitution is permissible. Motrin 800 mg tablets: take 1 tablet orally for 5 days, as needed for pain or swelling. Dispense fifteen (15). No refill. Substitution is permissible. Follow-up: Follow up with a dentist. ADDITIONAL INFORMATION Dental Abscess A dental abscess is an infection of the tooth socket. It often starts with a crack or cavity in the tooth. A pocket of pus forms between the tooth and the bone. The infection causes pain and swelling of the gum, cheek or jaw. The pain is often made worse by drinking hot or cold fluids, or biting on hard foods. Pain may be felt in the facial sinus or in the ear. A severe infection can interfere with swallowing and breathing. In the emergency department or clinic, you will be started on an antibiotic. However, final treatment requires drainage of the pus. This can be done by removing the tooth or performing a root canal. A root canal is done by an oral surgeon and involves drilling an opening in the tooth to drain the pus. After the infection has healed, a crown is placed over the tooth. Home care The following guidelines will help you care for your abscess at home: Avoid hot and cold foods and liquids since your tooth may be sensitive to temperature changes. If your tooth is chipped or cracked, or if there is a large open cavity, applyoil of cloves(available dnph-hus-avcegfm in drug stores) directly to the tooth to reduce pain. Some pharmacies carry an cmpq-nbq-quwlvhv "toothache kit". This contains oil of cloves and a paste, which can be applied over the exposed tooth to decrease sensitivity. Apply an ice pack (ice cubes in a plastic bag, wrapped in a towel) over the injured area for 20 minutes every 12 hours the first day for pain relief. Continue this 34 times a day until the pain and swelling goes away. You may use acetaminophen or ibuprofen to control pain, unless another medicine was prescribed. If you have chronic liver or kidney disease or ever had a stomach ulcer or GI bleeding, talk with your doctor before using these medicines. An antibiotic will be prescribed. Take it as directed until completed, even if you are feeling better sooner. Follow-up care Follow up as directed with a dentist or oral surgeon. Even though your pain may improve with the treatment given today, only a dentist or oral surgeon can provide full treatment for this problem. When to seek medical care Get prompt medical attention or contact your doctor if any of the following occur: Your face or eyelid becomes swollen or red Pain worsens or spreads to the neck Fever over 100.4F (38.0C) Unusual drowsiness; headache or stiff neck; weakness, or fainting Pus drains from the gum or tooth Difficulty talking, swallowing or breathing Unable to open your mouth wide Dental Pain A crack or cavity in the tooth, which exposes the sensitive inner area of the tooth can cause tooth pain. An infection in the gum or the root of the tooth can cause pain and swelling. The pain is often made worse by drinking hot or cold fluids, or biting on hard foods. Pain may spread from the tooth to the ear or jaw on the same side. Home Care: Avoid hot and cold foods and liquids since your tooth may be sensitive to temperature changes. If your tooth is chipped or cracked, or if there is a large open cavity, apply OIL OF CLOVES (available rsus-pjd-ymhzqdu in drug stores) directly to the tooth to reduce pain. Some pharmacies carry an qojn-scg-blufjwv "toothache kit." This contains a paste, which can be applied over the exposed tooth to decrease sensitivity. A cold pack on your jaw over the sore area may help reduce pain. You may use acetaminophen (Tylenol) or ibuprofen (Motrin, Advil) to control pain, unless another medicine was prescribed. [ NOTE: If you have chronic liver or kidney disease or ever had a stomach ulcer or GI bleeding, talk with your doctor before using these medicines.] If you have signs of an infection, an antibiotic will be given. Take it as directed. Follow-Up as directed with a dentist. Your pain may go away with the treatment given. However, only a dentist can fully evaluate and treat the cause and prevent the pain from coming back again. TOOTHACHE IS A SIGN OF DISEASE IN YOUR TOOTH AND SHOULD BE EXAMINED AND TREATED BY A DENTIST. Get Prompt Medical Attention if any of the following occur: Your face becomes swollen or red Pain worsens or spreads to the neck Fever over 100.4 F (38.0 C) Unusual drowsiness; headache or stiff neck; weakness or fainting Pus drains from the tooth Difficulty swallowing or breathing Clindamycin Hydrochloride Oral capsule What is this medicine? CLINDAMYCIN (DESIREIN jessenia THOMAS sin) is a lincosamide antibiotic. It is used to treat certain kinds of bacterial infections. It will not work for colds, flu, or other viral infections. How should I use this medicine? Take this medicine by mouth with a full glass of water. Follow the directions on the prescription label. You can take this medicine with food or on an empty stomach. If the medicine upsets your stomach, take it with food. Take your medicine at regular intervals. Do not take your medicine more often than directed. Take all of your medicine as directed even if you think your are better. Do not skip doses or stop your medicine early. Talk to your shank cementer hand regarding the use of this medicine in children. Special care may be needed. What side effects may I notice from receiving this medicine? Side effects that you should report to your doctor or health animal care taker as soon as possible: allergic reactions like skin rash, itching or hives, swelling of the face, lips, or tongue dark urine pain on swallowing redness, blistering, peeling or loosening of the skin, including inside the mouth unusual bleeding or bruising unusually weak or tired yellowing of eyes or skin Side effects that usually do not require medical attention (report to your doctor or health animal care taker if they continue or are bothersome): diarrhea itching in the rectal or genital area joint pain nausea, vomiting stomach pain What may interact with this medicine? chloramphenicol erythromycin kaolin products What if I miss a dose? If you miss a dose, take it as soon as you can. If it is almost time for your next dose, take only that dose. Do not take double or extra doses. Where should I keep my medicine? Keep out of the reach of children. Store at room temperature between 20 and 25 degrees C (68 and 77 degrees F). Throw away any unused medicine after the expiration date. What should I tell my health care provider before I take this medicine? They need to know if you have any of these conditions: kidney disease liver disease stomach problems like colitis an unusual or allergic reaction to clindamycin, lincomycin, or other medicines, foods, dyes like tartrazine or preservatives or trying to get breast-feeding What should I watch for while using this medicine? Tell your doctor or healthcare professional if your symptoms do not start to get better or if they get worse. Do not treat diarrhea with over the counter products. Contact your doctor if you have diarrhea that lasts more than 2 days or if it is severe and watery. You have been given the following additional information: Tooth Abscess Dental Pain Clindamycin Hydrochloride Oral capsule (Electronically signed by Macrina Griffith P.A.-C 01/19/2017 15:39)
== END 2017-01-19 15:30 | disposition home or self-care (01) ==
LOC: ED SRH 14:44
DX: K04.7 Periapical abscess without sinus (principal); Z79.899 Other long term (current) drug therapy; Z72.0 Tobacco use